=== PATIENT | female | born 1945 | race Caucasian/White ===

== ENCOUNTER → 2021-08-02 11:04 | Outpatient (CLI) | payer MEDICARE, OTHER, SELFPAY ==
--- NOTE | 2021-08-02 | DI.US.S_ITS ---
PROCEDURE: US EXTREMITY NONVASC UPPER LT INDICATIONS: LEFT SHOULDER MASS TECHNIQUE: Real-time scanning was performed of the left shoulder, with image documentation. COMPARISON: None. FINDINGS: No discrete soft tissue mass or fluid collection is noted at patient's reported area of left shoulder mass. No abnormal skin thickening. IMPRESSION: No abnormality is seen in left shoulder soft tissue at patient's reported area of palpable lump. Dictated by: Kevin Mathew M.D. on 08/02/2021 at 16:02 Approved by: Kevin Mathew M.D. on 08/02/2021 at 16:04
== END ==
PROVIDERS: Family Provider Internal Medicine; PCP Internal Medicine; Referring Provider Internal Medicine; Visit Provider Internal Medicine
DX: R22.32 Localized swelling, mass and lump, left upper limb (principal)
CPT/HCPCS: 76882

== ENCOUNTER 2021-09-01 10:20 | Observation (INO) | payer MEDICARE, OTHER, SELFPAY ==
[2021-09-01] VITALS (15 sets, daily range): BP systolic 130–176; BP diastolic 68–94; PULSE 54–68; RESP 16–27; TEMP 36.3–36.6; O2SAT 97–100; BMI 25.6
--- NOTE | 2021-09-01 10:36 | ED.GENADULT ---
HPI - General Adult General Chief complaint: Neuro Symptoms/Deficit Stated complaint: Unable to speak yesterday, trouble seeing Time Seen by Provider: 09/01/21 10:36 History of Present Illness HPI narrative: 76-year-old woman with no significant medical history however minimal interaction with medical system presents with 1 hour of a right-sided visual cut and expressive aphasia starting at 8:00 p.m. last night. Resolved completely by around 9:00 p.m. when she developed a mild headache at the base of her skull. She still has the mild headache that now is radiating down into the shoulder on the right side but no continued neurologic symptoms otherwise. She describes no fevers, cough, chills, dyspnea, chest pain, palpitations, abdominal pain, constipation or diarrhea, lower extremity edema. She notes that she had a similar episode initially in 2011 at that time was seen by a neurologist had an MRI and was diagnosed with migraine. She since has had episodes perhaps as frequently as once a year but never any that have lasted as long as last night. She currently seeing an school library media specialist to help with her chronic headaches and is finding that beneficial. She describes no history of prior strokes, cardiovascular disease, high blood pressure or hyperlipidemia. Related Data Home Medications Medication Instructions Recorded Confirmed No Known Home Medications 09/01/21 09/01/21 Allergies Allergy/AdvReac Type Severity Reaction Status Date / Time No Known Drug Allergies Allergy Verified 09/01/21 10:38 Review of Systems Review of Systems Narrative: Remainder of complete review of systems is otherwise unremarkable except for that included in the HPI. Patient History Social History household members: family Smoking Status: Former smoker alcohol intake: current Exam Narrative Exam Narrative: General: Healthy appearing, in no acute distress. Able to give a complete and coherent history. Well-nourished well-developed HEENT: Moist mucous membranes, normal sclera with reactive pupils, Neck: No JVD, supple Respiratory: Lungs are clear to auscultation, no wheezing no rales no rhonchi. Full and symmetrical air movement Cardiac: Regular rate and rhythm no murmurs no bruits Abdomen: Soft, nontender, good bowel tones, no flank pain Skin: Warm and dry, no rashes Neurologic: Grossly neurologically intact with no obvious asymmetries or abnormalities Extremities: No trauma, well perfused Psych: Cooperative, appropriate insight and affect NIH=0 Initial Vital Signs Initial Vital Signs: Vital Signs Temperature 97.8 F 09/01/21 10:30 Pulse Rate 68 09/01/21 10:30 Respiratory Rate 16 09/01/21 10:30 Blood Pressure 169/83 H 09/01/21 10:30 Pulse Oximetry 97 09/01/21 10:30 Course Orders Ordered: ED Orders 09/01/21 10:35 Complete Blood Count AUTO DIFF Stat Comprehensive Metabolic Panel Stat Lipid Panel Stat Troponin & CK Cardiac Panel Stat 09/01/21 10:54 EKG-12 Lead Stat 09/01/21 11:07 CT angio head and neck Stat CT head/brain wo con Stat 09/01/21 13:47 COVID19 - ADMIT (SOCIAL SCIENCE RESEARCH ASSISTANT swab/PCR) Stat Atorvastatin Calcium (Atorvastatin 20 Mg Tablet) 80 mg PO BEDTIME JANET Clopidogrel Bisulfate (Clopidogrel 75 Mg Tablet) 75 mg PO DAILY JANET Influenza Virus Vaccine (Influenza Hd Vaccine 0.7 Ml Syringe) 0.7 ml IM .ONCE ONE Stop: 09/02/21 09:01 Discontinued Medications Aspirin (Aspirin 81 Mg Chew Tab) 324 mg PO NOW ONE Stop: 09/01/21 10:56 Last Admin: 09/01/21 11:45 Dose: Not Given Documented by: ATAYLOR Sodium Chloride (Normal Saline 0.9%) 1,000 mls @ 150 mls/hr IV CONT JANET Last Admin: 09/01/21 11:30 Dose: 150 mls/hr Documented by: ATAYLOR Vital Signs Vital signs: Vital Signs - 8 hr 09/01/21 10:30 09/01/21 11:30 09/01/21 11:46 Temperature 97.8 F Pulse Rate 68 61 56 L Respiratory Rate 16 23 18 Blood Pressure 169/83 H 157/70 H Pulse Oximetry 97 98 97 09/01/21 12:00 09/01/21 12:01 09/01/21 12:27 Temperature Pulse Rate 55 L 56 L 64 Respiratory Rate 17 18 27 H Blood Pressure 162/68 H 161/68 H Pulse Oximetry 98 98 99 09/01/21 12:30 09/01/21 13:00 09/01/21 13:30 Temperature Pulse Rate 54 L 57 L 61 Respiratory Rate 18 21 22 Blood Pressure 163/69 H 167/76 H Pulse Oximetry 100 99 98 09/01/21 13:31 09/01/21 14:00 09/01/21 14:30 Temperature Pulse Rate 62 61 62 Respiratory Rate 20 23 25 H Blood Pressure 164/76 H 141/75 H 160/80 H Pulse Oximetry 98 98 98 Medical Decision Making Lab Data Result diagrams: 09/01/21 10:35 09/01/21 10:35 Labs: Lab Results 09/01/21 09/01/21 09/01/21 Range/Units 10:35 10:35 10:35 WBC 4.5 (4.5-11.0) X10^3/uL RBC 4.67 (4.0-5.2) X10^6/uL Hgb 13.9 (12.0-16.0) g/dL Hct 41.3 (36-46) % MCV 88.4 (80-100) fL MCH 29.7 (26-34) PG MCHC 33.6 (30-36) % RDW 13.1 (11.6-14.8) % Plt Count 250 (150-400) X10^3/uL Neut % (Auto) 40.1 L (50-75) % Lymph % (Auto) 46.6 H (25-40) % [place] % (Auto) 6.8 (3-14) % Eos % (Auto) 5.3 H (2-4) % Baso % (Auto) 1.2 (0-2) % Neut # (Auto) 1800 (8076-8880) /uL Lymph # (Auto) 2100 (6012-2802) /uL [place] # (Auto) 300 (0-900) /uL Eos # (Auto) 200 (0-450) /uL Baso # (Auto) 100 (0-100) /uL Sodium 139 (137-145) mmol/L Potassium 3.9 (3.4-5.1) mmol/L Chloride 107 (98-107) mmol/L Carbon Dioxide 25 (22-32) mmol/L BUN 14 (7-17) mg/dL Creatinine 0.72 (0.52-1.04) mg/dL Estimated GFR > 60.0 (>60) mL/min BUN/Creatinine Ratio 19.4 (6-22) Glucose 100 (80-110) mg/dL Calcium 9.1 (8.4-10.2) mg/dL Total Bilirubin 0.9 (0.2-1.3) mg/dL AST 32 (14-36) IU/L ALT 25 (<35) IU/L Alkaline Phosphatase 77 (38-126) U/L Total Creatine Kinase 90 (30-135) U/L CK-MB (CK-2) TNP CK-MB (CK-2) Rel Index TNP Troponin I < 0.012 (0.01-0.034) ng/mL Total Protein 7.1 (6.3-8.2) g/dL Albumin 4.5 (3.5-5.0) g/dL Globulin 2.6 (1.7-4.1) g/dL Albumin/Globulin Ratio 1.7 (1.0-2.8) Triglycerides 100 (35-150) mg/dL Cholesterol 215 H (140-199) mg/dL LDL Cholesterol, Calc 125 H (<100) mg/dL HDL Cholesterol 70 H (40-60) mg/dL SARS-CoV-2 (PCR) (Negative) 09/01/21 Range/Units 13:47 WBC (4.5-11.0) X10^3/uL RBC (4.0-5.2) X10^6/uL Hgb (12.0-16.0) g/dL Hct (36-46) % MCV (80-100) fL MCH (26-34) PG MCHC (30-36) % RDW (11.6-14.8) % Plt Count (150-400) X10^3/uL Neut % (Auto) (50-75) % Lymph % (Auto) (25-40) % [place] % (Auto) (3-14) % Eos % (Auto) (2-4) % Baso % (Auto) (0-2) % Neut # (Auto) (1894-2978) /uL Lymph # (Auto) (9893-6768) /uL [place] # (Auto) (0-900) /uL Eos # (Auto) (0-450) /uL Baso # (Auto) (0-100) /uL Sodium (137-145) mmol/L Potassium (3.4-5.1) mmol/L Chloride (98-107) mmol/L Carbon Dioxide (22-32) mmol/L BUN (7-17) mg/dL Creatinine (0.52-1.04) mg/dL Estimated GFR (>60) mL/min BUN/Creatinine Ratio (6-22) Glucose (80-110) mg/dL Calcium (8.4-10.2) mg/dL Total Bilirubin (0.2-1.3) mg/dL AST (14-36) IU/L ALT (<35) IU/L Alkaline Phosphatase (38-126) U/L Total Creatine Kinase (30-135) U/L CK-MB (CK-2) CK-MB (CK-2) Rel Index Troponin I (0.01-0.034) ng/mL Total Protein (6.3-8.2) g/dL Albumin (3.5-5.0) g/dL Globulin (1.7-4.1) g/dL Albumin/Globulin Ratio (1.0-2.8) Triglycerides (35-150) mg/dL Cholesterol (140-199) mg/dL LDL Cholesterol, Calc (<100) mg/dL HDL Cholesterol (40-60) mg/dL SARS-CoV-2 (PCR) Negative (Negative) Urine Dip Bedside Urine Glucose Negative Bedside Urine Bilirubin - Negative Bedside Urine Ketone - Negative Urine Specific [place] 1.010 Bedside Urine Occult Blood - Negative Bedside Urine pH 7.0 Bedside Urine Protein - Negative Bedside Urine Urobilinogen - Negative Bedside Urine Nitrite - Negative Bedside Urine Leukocytes - Negative Esterase Point of care testing: Urine Dip Bedside Urine Glucose Negative Bedside Urine Bilirubin - Negative Bedside Urine Ketone - Negative Urine Specific [place] 1.010 Bedside Urine Occult Blood - Negative Bedside Urine pH 7.0 Bedside Urine Protein - Negative Bedside Urine Urobilinogen - Negative Bedside Urine Nitrite - Negative Bedside Urine Leukocytes - Negative Esterase Imaging Data CT scan - head: Radiologist's Impression: FINDINGS: Image quality: Excellent. CSF spaces: Basal cisterns are patent. Bifrontal CSF prominence, which may reflect atrophy or hygromas. Ventricles are normal in size and shape. Brain: No midline shift. No intracranial masses or hemorrhage. Fraga-white matter interface is normal. Skull and face: Calvarium and visualized facial bones are intact, without suspicious lesions. Sinuses: Visualized sinuses and mastoids are clear. IMPRESSION: No acute intracranial abnormality. Dictated by: Barrera Ghotra M.D. on 09/01/2021 at 11:29 CTA Head and neck: Radiologist's Impression: FINDINGS: Image quality: Excellent. BRAIN: CSF spaces: Ventricles are normal in size and shape. Basal cisterns are patent. No extra-axial fluid collections. Brain: No midline shift. No intracranial bleeds or masses. Fraga-white matter interface appears intact. Skull and face: Calvarium and facial bones appear intact, without suspicious lesions. Orbits appear normal. Sinuses: Sinuses and mastoids are clear. HEAD CT ANGIOGRAPHY: Anterior circulation: Intracranial internal carotid arteries are normal in size and flow. The flow within the paired anterior cerebral arteries is normal and symmetric. The flow within the middle cerebral arteries is normal and symmetric. The anterior communicating artery is not well seen. No aneurysms are seen. Posterior circulation: Note is made of bilateral type origins of the posterior cerebral arteries, with an associated diminutive basilar artery. The flow within the posterior cerebral arteries is normal and symmetric. The distal vertebral arteries are overall small in size, yet otherwise unremarkable. No aneurysms are seen. NECK CT ANGIOGRAPHY: Carotid system: Incidental note is made of a common origin of the right brachiocephalic artery and the left common carotid artery (bovine type arch). This is considered to be a developmental variant of no clinical consequence. The origins of the common carotid arteries appear patent. The common carotid arteries demonstrate normal caliber and courses. The bifurcation regions are both widely patent. The internal carotid arteries demonstrate normal calibers and courses. Posterior circulation: The origins of the vertebral arteries both appear widely patent. The more superior extracranial portions of both vertebral arteries also demonstrate normal courses and calibers. They join to form a normal appearing basilar artery. Soft tissues: Visualized neck soft tissues demonstrate no suspicious abnormalities. Borderline prominent cervical lymph nodes are seen on both sides, without brenda enlargement. Incidental note is made of a left supraclavicular lipoma, which is partially visualized, as on series 8, image 143 that measures least 5 cm. Bones: No suspicious bony lesions. Visualized cervical spine appears normally aligned. Moderate cervical spine degenerative changes are seen. IMPRESSION: No significant intracranial arterial abnormality is seen. Within the arteries of the neck, no hemodynamically significant stenosis can be seen. Cfphjf-yh-Isjswm developmental anomalies are incidentally noted. No masses or abnormal enhancement can be seen. Borderline prominent cervical lymph nodes are seen, without brenda enlargement. Incidental note is made of: Bovine type aortic branching pattern Moderate cervical spine degenerative change Left supraclavicular lipoma Any quantitative measurements of stenosis were performed using NASCET criteria. Dictated by: Rigo Lantigua M.D. on 09/01/2021 at 10:38 ECG Data Interpretation: Sinus rhythm at a rate of 63 Normal intervals, normal axis No acute ischemic changes MDM Narrative Medical decision making narrative: 12:50 76-year-old woman at appropriate body weight active daily life no known blood pressure issues presents with 1 hour long TIA at 8:[address] and CTA are unremarkable. Lipid panel is reassuring with an HDL but still slightly elevated. She declines any aspirin because taking very large doses at 1 point in her life had caused palpitations. She can not conceive of actually taking medications every day. She continues to reiterate that the fact that she had a normal blood pressure reading a couple of years ago when she went in to see a physician means that she could not possibly have hypertension despite the consistent elevated systolic readings throughout her emergency room visit. Recommended hospitalization for further workup of TIA. She is not particularly interested in that. Negotiated additional options of aspirin, blood pressure medication and low-dose statin for risk reduction. Again very reluctant to even consider medications. Negotiated just aspirin and getting a blood pressure cuff and checking as an outpatient. Additional option of simply no treatment and wishful thinking was reviewed as well. After 25 minute discussion of symptoms, life living with a permanent stroke and risk reduction reduction, she and her son are currently considering choices. 130 decides on hospital admission. Care is reviewed with hospitalist. Discharge Plan Departure Patient Disposition: Admitted as Observation Clinical Impression: Transient cerebral ischemia Qualifiers: Transient cerebral ischemia type: other Qualified Code(s): G45.8 - Other transient cerebral ischemic attacks and related syndromes Hypertension Qualifiers: Hypertension type: primary hypertension Qualified Code(s): I10 - Essential (primary) hypertension Admit Date/Time: 09/01/21 14:40 Admit Provider: Masood Hidalgo
[2021-09-01 11:03] LABS: Add Manual Diff / Slide Review NO; Basophils Absolute Auto 100 /uL (0-100); Basophils Percent Auto 1.2 % (0-2); Eosinophils Absolute Auto 200 /uL (0-450); Eosinophils Percent Auto 5.3 % (2-4); Hematocrit 41.3 % (36-46); Hemoglobin 13.9 g/dL (12.0-16.0); Lymphocytes Absolute Auto 2100 /uL (1100-4500); Lymphocytes Percent Auto 46.6 % (25-40); Mean Corpuscular HGB Conc 33.6 % (30-36); Mean Corpuscular Hemoglobin 29.7 PG (26-34); Mean Corpuscular Volume 88.4 fL (80-100); Monocytes Absolute Auto 300 /uL (0-900); Monocytes Percent Auto 6.8 % (3-14); Neutrophils Absolute Auto 1800 /uL (1500-7000); Neutrophils Percent Auto 40.1 % (50-75); Platelet Count 250 X10^3/uL (150-400); Red Blood Cell Count 4.67 X10^6/uL (4.0-5.2); Red Cell Distribution Width 13.1 % (11.6-14.8); White Blood Cell Count 4.5 X10^3/uL (4.5-11.0)
--- NOTE | 2021-09-01 11:07 | DI.CT.S_ITS ---
PROCEDURE: CT ANGIO HEAD AND NECK INDICATIONS: /speech loss at 8pm last night TECHNIQUE: Noncontrast images were performed earlier in the day and not repeated. After the administration of intravenous contrast, 1 mm thick sections acquired from the aortic arch through the [place] of [place]. Post-contrast 4.5 mm thick sections then re-acquired from the foramen magnum to the vertex. 3-dimensional cprknsw-pmcqeqcdj-zlsjyvomao (MIP) and/or volume rendering reformats were acquired of the central intracranial vasculature and neck separately. COMPARISON: [facility], MR, BRAIN WITH AND WITHOUT CONTRAS, 01/07/2010, 11:50. [facility], CT, CT HEAD/BRAIN WO CON, 09/01/2021, 11:08. FINDINGS: Image quality: Excellent. BRAIN: CSF spaces: Ventricles are normal in size and shape. Basal cisterns are patent. No extra-axial fluid collections. Brain: No midline shift. No intracranial bleeds or masses. Fraga-white matter interface appears intact. Skull and face: Calvarium and facial bones appear intact, without suspicious lesions. Orbits appear normal. Sinuses: Sinuses and mastoids are clear. HEAD CT ANGIOGRAPHY: Anterior circulation: Intracranial internal carotid arteries are normal in size and flow. The flow within the paired anterior cerebral arteries is normal and symmetric. The flow within the middle cerebral arteries is normal and symmetric. The anterior communicating artery is not well seen. No aneurysms are seen. Posterior circulation: Note is made of bilateral type origins of the posterior cerebral arteries, with an associated diminutive basilar artery. The flow within the posterior cerebral arteries is normal and symmetric. The distal vertebral arteries are overall small in size, yet otherwise unremarkable. No aneurysms are seen. NECK CT ANGIOGRAPHY: Carotid system: Incidental note is made of a common origin of the right brachiocephalic artery and the left common carotid artery (bovine type arch). This is considered to be a developmental variant of no clinical consequence. The origins of the common carotid arteries appear patent. The common carotid arteries demonstrate normal caliber and courses. The bifurcation regions are both widely patent. The internal carotid arteries demonstrate normal calibers and courses. Posterior circulation: The origins of the vertebral arteries both appear widely patent. The more superior extracranial portions of both vertebral arteries also demonstrate normal courses and calibers. They join to form a normal appearing basilar artery. Soft tissues: Visualized neck soft tissues demonstrate no suspicious abnormalities. Borderline prominent cervical lymph nodes are seen on both sides, without brenda enlargement. Incidental note is made of a left supraclavicular lipoma, which is partially visualized, as on series 8, image 143 that measures least 5 cm. Bones: No suspicious bony lesions. Visualized cervical spine appears normally aligned. Moderate cervical spine degenerative changes are seen. IMPRESSION: No significant intracranial arterial abnormality is seen. Within the arteries of the neck, no hemodynamically significant stenosis can be seen. Fwgzib-ra-Rvvnxe developmental anomalies are incidentally noted. No masses or abnormal enhancement can be seen. Borderline prominent cervical lymph nodes are seen, without brenda enlargement. Incidental note is made of: Bovine type aortic branching pattern Moderate cervical spine degenerative change Left supraclavicular lipoma Any quantitative measurements of stenosis were performed using NASCET criteria. Dictated by: Rigo Lantigua M.D. on 09/01/2021 at 10:38 Approved by: Rigo Lantigua M.D. on 09/01/2021 at 10:42
--- NOTE | 2021-09-01 11:07 | DI.CT.S_ITS ---
PROCEDURE: CT HEAD/BRAIN WO CON INDICATIONS: stroke like symptoms last pm TECHNIQUE: Noncontrast 4.5 mm thick angled axial sections acquired from the foramen magnum to the vertex, with coronal and sagittal reformats. For radiation dose reduction, the following was used: automated exposure control, adjustment of mA and/or kV according to patient size. COMPARISON: Reference is made to the MRI brain dated January 07, 2010. FINDINGS: Image quality: Excellent. CSF spaces: Basal cisterns are patent. Bifrontal CSF prominence, which may reflect atrophy or hygromas. Ventricles are normal in size and shape. Brain: No midline shift. No intracranial masses or hemorrhage. Fraga-white matter interface is normal. Skull and face: Calvarium and visualized facial bones are intact, without suspicious lesions. Sinuses: Visualized sinuses and mastoids are clear. IMPRESSION: No acute intracranial abnormality. Dictated by: Barrera Ghotra M.D. on 09/01/2021 at 11:29 Approved by: Barrera Ghotra M.D. on 09/01/2021 at 11:33
[2021-09-01 11:10] LABS: Alanine Aminotransferase 25 IU/L (<35); Albumin 4.5 g/dL (3.5-5.0); Albumin Globulin Ratio 1.7 (1.0-2.8); Alkaline Phosphatase 77 U/L (38-126); Aspartate Aminotransferase 32 IU/L (14-36); BUN Creatinine Ratio 19.4 (6-22); Bilirubin Total 0.9 mg/dL (0.2-1.3); Blood Urea Nitrogen 14 mg/dL (7-17); Calcium 9.1 mg/dL (8.4-10.2); Carbon Dioxide 25 mmol/L (22-32); Chloride 107 mmol/L (98-107); Cholesterol 215 mg/dL (140-199); Creatine Kinase 90 U/L (30-135); Estimated Glomerular Filt Rate > 60.0 mL/min (>60); Globulin 2.6 g/dL (1.7-4.1); Glucose 100 mg/dL (80-110); HDL Cholesterol 70 mg/dL (40-60); HEMOLYSIS < 15 (0-50); LDL Cholesterol Calculated 125 mg/dL (<100); Potassium 3.9 mmol/L (3.4-5.1); Sodium 139 mmol/L (137-145); Total Protein 7.1 g/dL (6.3-8.2); Triglycerides 100 mg/dL (35-150)
[2021-09-01 11:21] LABS: Troponin I < 0.012 ng/mL (0.01-0.034)
[2021-09-01] MEDS: SODIUM CHLORIDE 0.9% 1,000 ML 150 ML IV (11:30)
--- NOTE | 2021-09-01 14:44 | DI.MRI.S_ITS ---
PROCEDURE: MR STROKE Pre- and post-contrast brain MRI, non-contrast brain MR angiogram, pre- and postcontrast neck MR angiogram INDICATIONS: stroke TECHNIQUE: Brain: Noncontrast axial T1 spin echo, axial T2 fast spin echo, sagittal and axial FLAIR, coronal T2 fast spin echo, axial gradient echo, axial diffusion and ADC through the brain. After the administration of contrast, axial 3D VIBE of the cranial vasculature and brain. Brain MRA: Non-contrast 3-D time of flight MR angiogram, with multiple tkatdup-ulhmoxkdl-ptgbxvvmxw (MIP) reformats performed. Neck MRA: Axial and sagittal TruFISP through the neck. Coronal dynamic MR angiogram during administration of contrast in the arterial and venous phases, with 3-dimenstional krulgrj-zkdhnywhp-dztflzgigo (MIP) reformats constructed from subtraction images. COMPARISON: [facility], CT, CT ANGIO HEAD AND NECK, 09/01/2021, 11:08. [facility], CT, CT HEAD/BRAIN WO CON, 09/01/2021, 11:08. FINDINGS: Image quality: Limited by patient motion artifact. BRAIN: CSF spaces: Ventricles are normal in size and shape. Basal cisterns are patent. No extra-axial fluid collections. Brain: No intracranial bleeds or mass effects. Fraga-white matter interface is normal. Diffusion weighted images show no acute ischemic insults. Brainstem appears normal. Normal intravascular flow voids are present. Dural sinuses demonstrate normal postcontrast enhancement. No abnormal intracranial enhancement. Skull and face: Calvarial marrow signal is normal. Orbits appear normal. Sinuses: Sinuses and mastoids are clear. BRAIN MR ANGIOGRAM: Anterior circulation: Intracranial internal carotid arteries are normal in size and enhancement. The flow within the paired anterior cerebral arteries is normal and symmetric. The flow within the middle cerebral arteries is normal and symmetric. The anterior communicating artery is seen. No stenoses, occlusions, or aneurysms. Posterior circulation: The visualized portions of the vertebral arteries demonstrate normal caliber, and join to form a normal appearing basilar artery. The flow within the posterior cerebral arteries is normal and symmetric. Posterior cerebral arteries have origins bilaterally which is a congenital anatomic variant. No stenoses, occlusions, or aneurysms. NECK MR ANGIOGRAM: Carotids: Great vessels demonstrate bovine variant anatomy as they arise from the aortic arch. The origins of the common carotid arteries appear patent. Proximal common carotid arteries are difficult to evaluate due to motion artifact. Common carotid arteries are grossly patent. The bifurcation regions appear normal bilaterally. The internal carotid arteries demonstrate normal course and caliber. Posterior circulation: The origins of the vertebral arteries are not well visualized due to motion artifact and cannot be evaluated. There is normal flow in the vertebral arteries distal to the origins of the vessels. More superior portions of both vertebral arteries demonstrate normal course and caliber, and join to form a normal appearing basilar artery. Miscellaneous: Subclavian arteries appear patent. Pre-contrast images through the neck show no soft tissue abnormalities. Left supraclavicular fossa lipoma stable compared to prior CT scan. IMPRESSION: BRAIN MRI: 1. No acute intracranial disease process. 2. No areas of acute or chronic infarction. 3. No intracranial hemorrhage. 4. Mild, diffuse cerebral volume loss. 5. Minimal periventricular and subcortical white matter chronic microvascular ischemic change. BRAIN MR ANGIOGRAM: Negative examination. NECK MR ANGIOGRAM: 1. Degraded by patient motion artifact. 2. Internal carotid arteries are fully patent. 3. Well visualized portions of the vertebral arteries are fully patent. Origins of the vertebral arteries are not well visualized due to motion artifact. Dictated by: America Anderson MD, PhD on 09/01/2021 at 15:57 Approved by: America Anderson MD, PhD on 09/01/2021 at 16:07
--- NOTE | 2021-09-01 14:46 | DI.ECHO.S_ITS ---
[place] [facility]---------+ [facility] +---------+ : : [address] : : : : [id number] : : : : Phone: [phone]+ Echocardiogram Report + + :Name: CHANDLER TOM Study Date: 09/01/2021 Height: 62 in : :[facility] ReadingLocation: Weight: 140 lb: : Gender: Female BSA: 1.6 m2 : :: 1945 Age: 76 yrs : :Reason For Study: TIA vs CVA : : Performed By: NAHEED CAMPOS : :Referring: ZAIN ACOSTA : + + Interpretation Summary Normal sinus rhythm. Normal LV size, wall thickness, wall motion and LV systolic function. EF is 60-65%. Normal chamber sizes. No evidence of PFO based on color flow Doppler. No significant valvular abnormalities. No source of embolism found. Compared to prior study 02/09/2010 sinus bradycardia is no longer present. Otherwise no significant changes have occurred. Procedure: A two-dimensional transthoracic echocardiogram with color flow and Doppler was performed. The study quality was technically adequate. Comparison is made with the echocardiogram of 02/09/2010. The patient was in normal sinus rhythm during the exam. Left Ventricle: The left ventricle is normal in size and wall thickness. The left ventricular ejection fraction is normal. Left ventricular wall motion is normal. Diastolic parameters suggest a relaxation abnormality of the left ventricle, consistent with probable normal filling pressures. Right Ventricle: The right ventricle is normal in size and function. Atria: The left atrial size is normal. The right atrium is normal in size. There is no Doppler evidence for an interatrial shunt. The thickening of interatrial septum suggests lipomatous hypertrophy. The atrial septum is aneurysmal. Mitral Valve: There is mild mitral annular calcification. There is mild mitral regurgitation. Aortic Valve: The aortic valve is trileaflet. The aortic valve opens well. No aortic regurgitation is present. Tricuspid Valve: The tricuspid valve is normal. There is trace tricuspid regurgitation. Pulmonary artery pressures cannot be estimated because of the lack of a measurable TR jet velocity but the IVC suggests a CVP of around 3 mmHg. Pulmonic Valve: The pulmonic valve leaflets are thin and pliable; valve motion is normal. There is a trace or physiologic amount of pulmonic regurgitation. Great Vessels: The aortic root is normal size. The ascending aorta is normal in size. The aortic arch is normal in size. The IVC is of normal diameter and collapses greater than 50% with a sniff. This suggests a low right atrial pressure of 3 mm Hg. Pericardium/ Pleura There is no pericardial effusion. There is an anterior echo-free space consistent with a fat pad. There is no pleural effusion. MMode/2D Measurements & Calculations LVIDd: 4.3 cm LVOT diam: 1.7 cm LVIDs: 3.2 cm Ao root diam: 3.0 cm FS: 25.6 % asc Aorta Diam: 3.2 cm IVSd: 0.91 cm Ao Arch Diam (Prox Trans): 2.4 cm LVPWd: 0.95 cm LV latif. diameter/BSA (cm/m^2): 2.6 LV sys. diameter/BSA (cm/m^2): 1.9 LA A2 area: 15.4 cm2 RA long axis: 5.0 cm LA A4 area: 18.9 cm2 RA area: 17.7 cm2 LA length (vol): 5.2 cm RA vol: 53.4 ml LA vol: 47.0 ml RA : 32.5 ml/m2 LA vol index: 28.6 ml/m2 RVD1 (basal): 3.1 cm TAPSE: 2.2 cm Doppler Measurements & Calculations Ao V2 max: 137.2 cm/sec LVOT Max Charlie: 110.4 cm/sec Ao V2 mean: 89.0 cm/sec LV V1 max P.9 mmHg Ao max P.5 mmHg LV V1 VTI: 27.4 cm Ao mean P.5 mmHg MOHAN(I,D): 2.2 cm2 Ao V2 VTI: 28.6 cm MOHAN(V,D): 1.8 cm2 sev ratio: 0.96 MOHAN indexed to BSA (cm^2/m^2): 1.3 MV E max charlie: 80.0 cm/sec PA V2 max: 80.0 cm/sec MV A max charlie: 102.9 cm/sec PA V2 mean: 59.3 cm/sec MV E/A: 0.78 PA mean P.5 mmHg Med Peak E' Charlie: 3.9 cm/sec E/E' med: 20.5 Lat Peak E' Charlie: 8.3 cm/sec E/E' lat: 9.6 E/e' average: 15.1 MV dec time: 0.25 sec [facility] 62.7 ml Electronically signed by: Naya Franz M.D. on Reading Physician:09/01/2021 07:25 PM
[2021-09-01 14:52] LABS: COVID19 - ADMIT (NP swab/PCR) Negative (Negative)
--- NOTE | 2021-09-01 17:23 | SLP.IPNOTE ---
Per Dr. Hidalgo, Brandee does not need speech or swallow screen/evaluation. Order was automatically included but is not necessary.
--- NOTE | 2021-09-01 17:30 | P.HP_ITS ---
History of Present Illness History of Present Illness Date Patient Seen: 09/01/21 Time Patient Seen: 08:00 Chief complaint: Unable to speak yesterday, trouble seeing Narrative: Ms. Nguyễn is a 71W with no significant PMH, takes no medications who presents after having neurologic symptoms last night. She noted that she had 1 hour of right-sided visual cut. She also noted some difficulty with saying the correct word. She had a mild headache with this. She thinks she has a history of migraines, but does not take medications for this. She did not note any lateral izing weakness. She otherwise did not have any symptoms with no fevers, cough, chills, chest pain, shortness of breath, abdominal pain, nausea, vomiting, diarrhea. She saw an outpatient physician today who recommended she come to the ED, her symptoms had already completely resolved. In the ED, workup was done, vitals normal except for hypertension. Labs notable for WBC 4.5, Hgb 13.9, creatinine 0.72. Troponin negative. Cholesterol 215. CT head showed no acute process. CT angio head/neck showed no acute process. Initially she was hesitant to take any medications, but she did agree to plavix and was given a dose. Family history: Mother - hypertension Patient History Family & Social History Social History: household members family Prior Living Arrangements House Safety & Behavioral: Feels Safe in Current Yes Environment Been Physically Hurt or No Threatened By a Person Suicidal Ideation Description None Suicide Plan Description No Plan Tobacco & Substance use: Smoking Status Former smoker alcohol intake current alcohol intake frequency a few times a month Substance Use Type does not use Meds Home Medications and Allergies Home Medications Medication Instructions Recorded Confirmed Type No Known Home Medications 09/01/21 09/01/21 History Allergies Allergy/AdvReac Type Severity Reaction Status Date / Time No Known Drug Allergies Allergy Verified 09/01/21 10:38 Review of Systems Review of Systems Narrative: 14 systems reviewed and negative aside from HPI Exam Vital Signs (past 8 hours): - 09/01/21 10:30 09/01/21 11:30 09/01/21 11:46 Temperature 97.8 F Pulse Rate 68 61 56 L Respiratory Rate 16 23 18 Blood Pressure 169/83 H 157/70 H Pulse Oximetry 97 98 97 09/01/21 12:00 09/01/21 12:01 09/01/21 12:27 Temperature Pulse Rate 55 L 56 L 64 Respiratory Rate 17 18 27 H Blood Pressure 162/68 H 161/68 H Pulse Oximetry 98 98 99 09/01/21 12:30 09/01/21 13:00 09/01/21 13:30 Temperature Pulse Rate 54 L 57 L 61 Respiratory Rate 18 21 22 Blood Pressure 163/69 H 167/76 H Pulse Oximetry 100 99 98 09/01/21 13:31 09/01/21 14:00 09/01/21 14:30 Temperature Pulse Rate 62 61 62 Respiratory Rate 20 23 25 H Blood Pressure 164/76 H 141/75 H 160/80 H Pulse Oximetry 98 98 98 09/01/21 15:35 Temperature 97.3 F L Pulse Rate 65 Respiratory Rate 18 Blood Pressure 176/81 H Pulse Oximetry 99 Oxygen Delivery Method Room Air Narrative Exam Narrative: GEN: no acute distress HEENT: PERRL, moist mucous membranes NECK: trachea midline, no JVD PULM: clear bilaterally, no wheezes, rhonchi, rales ABD: soft, nontender, nondistended, no organomegaly, normal bowel sounds EXT: warm and well perfused with no edema SKIN: no rashes noted NEURO: awake and alert, cranial nerves 2-12 intact, strength 5/5 on upper and lower extremities, sensation intact, rapid alternating movements and heel to sparrow normal, PSYCH: pleasant, cooperative Objective Labs Result Diagrams: 09/01/21 10:35 09/01/21 10:35 Labs: Laboratory Results - last 24 hr 09/01/21 09/01/21 09/01/21 10:35 10:35 10:35 WBC 4.5 RBC 4.67 Hgb 13.9 Hct 41.3 MCV 88.4 MCH 29.7 MCHC 33.6 RDW 13.1 Plt Count 250 Neut % (Auto) 40.1 L Lymph % (Auto) 46.6 H [place] % (Auto) 6.8 Eos % (Auto) 5.3 H Baso % (Auto) 1.2 Neut # (Auto) 1800 Lymph # (Auto) 2100 [place] # (Auto) 300 Eos # (Auto) 200 Baso # (Auto) 100 Sodium 139 Potassium 3.9 Chloride 107 Carbon Dioxide 25 BUN 14 Creatinine 0.72 Estimated GFR > 60.0 BUN/Creatinine Ratio 19.4 Glucose 100 Calcium 9.1 Total Bilirubin 0.9 AST 32 ALT 25 Alkaline Phosphatase 77 Total Creatine Kinase 90 CK-MB (CK-2) TNP CK-MB (CK-2) Rel Index TNP Troponin I < 0.012 Total Protein 7.1 Albumin 4.5 Globulin 2.6 Albumin/Globulin Ratio 1.7 Triglycerides 100 Cholesterol 215 H LDL Cholesterol, Calc 125 H HDL Cholesterol 70 H SARS-CoV-2 (PCR) 09/01/21 13:47 WBC RBC Hgb Hct MCV MCH MCHC RDW Plt Count Neut % (Auto) Lymph % (Auto) [place] % (Auto) Eos % (Auto) Baso % (Auto) Neut # (Auto) Lymph # (Auto) [place] # (Auto) Eos # (Auto) Baso # (Auto) Sodium Potassium Chloride Carbon Dioxide BUN Creatinine Estimated GFR BUN/Creatinine Ratio Glucose Calcium Total Bilirubin AST ALT Alkaline Phosphatase Total Creatine Kinase CK-MB (CK-2) CK-MB (CK-2) Rel Index Troponin I Total Protein Albumin Globulin Albumin/Globulin Ratio Triglycerides Cholesterol LDL Cholesterol, Calc HDL Cholesterol SARS-CoV-2 (PCR) Negative Assessment & Plan Assessment & Plan narrative: Ms. Nguyễn is a 76W with no significant PMH who presents with visual changes and aphasia, now completely resolved admitted for TIA workup 1. TIA vs migraine -CT head, CT angio head/neck with no acute process -MRI and ECHO ordered -ordered for plavix and atorvastatin -PT/OT ordered, speech not indicated currently -NIH score qshift -lipids elevated -a1c pending 2. Hypertension -allow permissive hypertension -consider adding anti-hypertensive prior to dc 3. Hyperlipidemia -ordered for atorvastatin CODE: Full Proxy: Wild Nguyễn, son DVT ppx: Lovenox ut Dispo: Observation, excpet overnight admission for TIA workup and discharge tomorrow I have utilized all available immediate resources to obtain, update, or review the patient's current medications. Time Spent With Patient Critical Care time: I spent a total of [] minutes of critical care time on this patient's care today; this time is exclusive of procedural time. Quality VTE Deep Vein Thrombosis/Pulmonary Embolism Present on Admission: No MIPS - Admit I confirm the patient?s Advance Care Plan is present, Code status is documented, Surrogate decision maker is in patient?s record [If Yes, STOP here]: Yes
[2021-09-02 06:22] LABS: Add Manual Diff / Slide Review NO; Basophils Absolute Auto 0 /uL (0-100); Basophils Percent Auto 0.7 % (0-2); Eosinophils Absolute Auto 300 /uL (0-450); Eosinophils Percent Auto 6.3 % (2-4); Hematocrit 40.5 % (36-46); Hemoglobin 13.4 g/dL (12.0-16.0); Lymphocytes Absolute Auto 1700 /uL (1100-4500); Lymphocytes Percent Auto 41.2 % (25-40); Mean Corpuscular Hemoglobin 29.2 PG (26-34); Mean Corpuscular Volume 88.4 fL (80-100); Monocytes Absolute Auto 400 /uL (0-900); Monocytes Percent Auto 8.5 % (3-14); Neutrophils Absolute Auto 1800 /uL (1500-7000); Neutrophils Percent Auto 43.3 % (50-75); Platelet Count 222 X10^3/uL (150-400); Red Blood Cell Count 4.58 X10^6/uL (4.0-5.2); Red Cell Distribution Width 13.3 % (11.6-14.8); White Blood Cell Count 4.2 X10^3/uL (4.5-11.0)
[2021-09-02 06:39] LABS: BUN Creatinine Ratio 15.5 (6-22); Blood Urea Nitrogen 11 mg/dL (7-17); Calcium 8.8 mg/dL (8.4-10.2); Carbon Dioxide 28 mmol/L (22-32); Chloride 108 mmol/L (98-107); Estimated Glomerular Filt Rate > 60.0 mL/min (>60); Glucose 90 mg/dL (80-110); HEMOLYSIS < 15 (0-50); Potassium 3.8 mmol/L (3.4-5.1); Sodium 140 mmol/L (137-145)
[2021-09-02 06:42] LABS: Hemoglobin A1C% w Est Avg Glu 5.2 % (4.0-6.0)
[2021-09-02 06:48] LABS: Cholesterol 187 mg/dL (140-199); HDL Cholesterol 61 mg/dL (40-60); LDL Cholesterol Calculated 102 mg/dL (<100); Triglycerides 118 mg/dL (35-150)
[2021-09-02 07:45] VITALS: BP 115/75; PULSE 69; RESP 18; TEMP 36.5; O2SAT 98
--- NOTE | 2021-09-02 08:12 | PC.NURSE ---
Addendum entered by Fransisca Koroma R.N. 09/02/21 10:13: Patient given discharge instructions regarding f/u appointment with PCP, new medications, s/s of stroke or worsening condition, patient verbalized understanding. Patient's IV removed, patient tolerated, denies further needs or questions at this time. Denies having belongings in the safe or pharmacy. Patient discharged via wheelchair with aide assist. Addendum entered by Fransisca Koroma R.N. 09/02/21 09:14: Patient requests to hold on plavix and instead trial Aspirin 81mg, gave verbal order for medication change. Patient currently working with OT. Denies further needs at this time. Original Note: Patient resting in bed, denies changes in vision or difficulty with speech. NIH 0. A/O x 3. VSS. Denies pain, SOB, dizziness or headache. Tele on. Call light in reach. Patient denies further needs at this time.
[2021-09-02] MEDS: INFLUENZA HD VACCINE 0.7 ML SYRINGE IM (08:19)
[2021-09-02] MEDS: ASPIRIN EC 81 MG TABLET PO (09:08)
--- NOTE | 2021-09-02 09:23 | OT.IP.EVAL ---
Occupational Therapy Inpatient Evaluation/Re-Eval M1 PT/OT-IP Prior Functional Status Start: 09/02/21 09:21 Freq: NEEDED Status: Active Protocol: Document 09/02/21: [facility] (Rec: 09/02/21 09:42 [facility] [id number]) Medical Review Prior Functional Status Communication Independent Mobility and Gait Pt completely independent for ambulation needs without a device. 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 Social History Household Members family Living Arrangements House Number of Stairs To Enter/Railing? 1 step to get into the doorway . 10-15 steps with narrow echeverria to hold to if needed to get upstairs and also for downstairs levels. Home Environment High Toilet,Tub/Shower Home Equipment Hand Held Shower Additional Social History Comment Pt's son lives with pt at this time and states has been doing her bills. M2 OT-IP Current Condition Start: 09/02/21 09:21 Freq: Status: Active Protocol: Document 09/02/21:21 [facility] (Rec: 09/02/21 09:42 [facility] [id number]) Occupational Therapy Current Condition Current Condition Evaluation Date 09/02/21 Treatment Diagnosis TIA Diagnosis Onset Date 09/01/21 M3 OT- IP Subjective and Pain Start: 09/02/21 09:21 Freq: Status: Active Protocol: Document 09/02/21 09:21 [facility] (Rec: 09/02/21 09:42 [facility] [id number]) OT- Subjective Occupational Therapy Visit Type Type Initial Evaluation Visit Start Time 08:38 Visit Stop Time 09:23 Total Visit Minutes 45 Occupational Therapy Visit Comments Patient Comments Pt agreed to go OT eval and pt 's son present in the room. Patient/Caregiver Goals To go home. OT Pain Assessment Pain When Pain Assessed At Rest Pain Present Pain Present Denied Pain M4 OT- IP ADL's Start: 09/02/21 09:21 Freq: Status: Active Protocol: Document 09/02/21:21 [facility] (Rec: 09/02/21 09:42 [facility] [id number]) OT [id number] General Evaluation Self-Feeding Ability Independent OT ADL-Grooming Comments OT Grooming Comments Not performed. OT ADL-Oral Care Comments Oral Care Comments Not performed. OT ADL-Dressing Comments OT Dressing Comments Pt not wanting to get dressed yet at this time. OT ADL-Toileting General Evaluation Toileting Ability Independent OT ADL-Bathing Comments OT Bathing Comments Not performed. M5 OT- IP IADL's Start: 09/02/21 09: Freq: Status: Active Protocol: Document 09/02/21 09:21 [facility] (Rec: 09/02/21 09:42 [facility] [id number]) OT-Instrumental Activities of Daily Living Home Safety Awareness Home Safety Comments pt feels that she is at baseline level for cognitive needs, however pt's son aware to provide supervision and assist as needed. Medication Management Medication Management Comments Suggested pt's son to supervise her as needed. Money Management Money Management Comments Pt's son already has been paying the bills. Meal Preparation Meal Preparation Comments Son to provide supervision as needed. Mechanical Assembler Mechanical Assembler Comments Son to provide supervision as needed. Driving Driving Comments Suggested son to drive initially or sit with his mom if trying to drive. M6 OT- IP Functional Cognition Start: 09/02/21 09:21 Freq: Status: Active Protocol: Document 09/02/21: [facility] (Rec: 09/02/21 09:42 [facility] [id number]) Cognitive Factors Limiting Selfcare Function Cognitive Ability Level of Alertness Alert Patient Orientation Name,Age,Birthday,Month,Date, Year,Day of Week,Place, Situation Attention Span Ability Capable of Focused Attention, Capable of Sustained Attention Ability to Follow Commands Able to Follow One Step Commands Memory Description Short Term Impaired Safety Awareness Underestimates Need for Assistance Problem Solving Ability No deficits Noted Executive Function Ability Unable to Remember Details Cognitive Comments Cognitive Assessment Comments Pt needing reminders for directions for 9 Hole Peg test , assist to help average two numbers, and for looking up information for a 4 variable chart. Pt scored 97seconds on [place] Making Part B which implies mild impairments for visual attention, task switching, speed of processing , mental flexibility, executive functioning, and speed of processing. Pt's son aware to provide supervision for needs as needed. OT- Vision and Hearing OT- Hearing Assessment OT- Hearing Assessment WFL OT- Vision Assessment Visual Acuity Glasses All The Time Visual Attentiveness WFL Occular Pursuits WFL Visual Convergence WFL Visual [place] WFL M7 OT- IP Mobility and Balance Start: 09/02/21 09:21 Freq: Status: Active Protocol: Document 09/02/21 09:21 [facility] (Rec: 09/02/21 09:42 [facility] [id number]) OT- Bed Mobility Assessment Rolling Type of Rolling Roll to Left Level of Assistance Independent Supine to Sit Supine to Sit Assist Independent Sit to Supine Sit to Supine Assist Independent Scooting Scooting to Edge of Bed Independent Scooting Up and Down in Bed Independent OT-Transfer Assessment Sit to and From Stand Sit to and from Stand Independent Transfers Transfer Ability Independent Technique Transfer Destination Bed Comments Mobility Comments Pt independent to move in her room. OT- Gait Assessment Comments Gait Ability Comments Independent without a device for level surfaces. OT- Balance Assessment Sitting Balance and Reactions Static Sitting Balance Ability Normal Dynamic Sitting Balance Ability Normal Standing Balance and Reactions Static Standing Balance Ability Normal M8 OT- IP Objective Assessments Start: 09/02/21 09:21 Freq: Status: Active Protocol: Document 09/02/21 09:21 [facility] (Rec: 09/02/21 09:42 [facility] [id number]) OT Gross Range of Motion Upper Extremity Range of Motion Assessment Within Functional Limits OT Strength Upper Extremity Strength Assessment Within Functional Limits Comments Strength Comments WFL OT- Coordination Assessment Upper Extremity Finger to Nose Test Within Functional Limits Comments Coordination Comments Right hand 21 sec and left hand 23 second and both are approx. 75% for her age group. OT-Muscle Tone Assessment Muscle Tone WNL Yes OT Sensation Assessment Comments Summary Comments WFL for light touch M9 OT- IP Assessment and Plan Start: 09/02/21 09:21 Freq: Status: Active Protocol: Document 09/02/21 09:21 [facility] (Rec: 09/02/21 09:42 [facility] [id number]) OT Summary Assessment and Plan Potential Rehabilitation Potential Excellent Analytic Complexity at Evaluation Low Summary Progress Towards Goals Safe For Discharge Assessment Summary Pt low complexity and here due to TIA. Pt has a very supportive son who lives with the pt and prior has started to do her bills and is aware to provide supervision especially for executive problem solving needs. Pt to go home with her son when medically stable. Goals Shower Transfer Goal Independent Days to Meet Goals 1 Frequency of Treatment Frequency Of Treatment Once a Day Treatment Plan OT Treatment Plan ADL Training,Functional Cognition Training,Functional Mobility,Patient/Family Education,Discharge Planning Other Treatment Recommendations and Next shower if pt stil here Treatment Focus Discharge Recommendations OT Discharge Recommendations Home with Assistance Home Equipment Needs ?shower chair Transportation Needs at Discharge Private Vehicle
--- NOTE | 2021-09-02 11:26 | P.DS_ITS ---
History of Present Illness History of Present Illness Chief complaint: Unable to speak yesterday, trouble seeing Narrative: Ms. Nguyễn is a 71W with no significant PMH, takes no medications who presents after having neurologic symptoms last night. She noted that she had 1 hour of right-sided visual cut. She also noted some difficulty with saying the correct word. She had a mild headache with this. She thinks she has a history of migraines, but does not take medications for this. She did not note any laterali zing weakness. She otherwise did not have any symptoms with no fevers, cough, chills, chest pain, shortness of breath, abdominal pain, nausea, vomiting, diarrhea. She saw an outpatient physician today who recommended she come to the ED, her symptoms had already completely resolved. In the ED, workup was done, vitals normal except for hypertension. Labs notable for WBC 4.5, Hgb 13.9, creatinine 0.72. Troponin negative. Cholesterol 215. CT head showed no acute process. CT angio head/neck showed no acute process. Initially she was hesitant to take any medications, but she did agree to plavix and was given a dose. Family history: Mother - hypertension Discharge Providers Provider Date of admission: 09/01/21 14:40 Discharge Date: 09/02/21 Primary care physician: Judy Hameed MD Consults: 09/01/21 14:44 Consult to Discharge Planning Routine Comment: Consult to Occupational Therapy Evaluate & Treat Comment: Physician Instructions: Evaluate and treat Consult to Physical Therapy Evaluate & Treat Comment: Physician Instructions: Evaluate and Treat Consult to Speech Therapy Evaluate & Treat Comment: Physician Instructions: Evaluate and treat Discharge provider: Masood Hidalgo MD Summary Hospital Course Discharge Diagnosis: 1. TIA 2. Hyperlipidemia Hospital Course: Ms. Nguyễn came in to the hospital with difficulty with vision and speech that resolved before admission. She had workup done that showed no evidence of stroke on CT head or MRI head. CT angio/head neck did not show any large acute process. ECHO showed preserved EF. She was ordered for aspirin and statin. She had high cholesterol. She initially had high blood pressure but this resolved without treatment, so she was not started on anti-hypertensives. Exam Vital Signs (past 8 hours): Oxygen Delivery Method Room Air Oxygen Flow Rate 0 Narrative Exam Narrative: GEN: no acute distress HEENT: PERRL, moist mucous membranes NECK: trachea midline, no JVD PULM: clear bilaterally, no wheezes, rhonchi, rales ABD: soft, nontender, nondistended, no organomegaly, normal bowel sounds EXT: warm and well perfused with no edema SKIN: no rashes noted NEURO: awake and alert, cranial nerves 2-12 intact, strength 5/5 on upper and lower extremities, sensation intact, rapid alternating movements and heel to sparrow normal, PSYCH: pleasant, cooperative Objective Labs Result Diagrams: 09/02/21 05:51 09/02/21 05:51 Labs: Laboratory Results - last 24 hr 09/02/21 09/02/21 09/02/21 05:51 05:51 05:51 WBC 4.2 L RBC 4.58 Hgb 13.4 Hct 40.5 MCV 88.4 MCH 29.2 MCHC 33.0 RDW 13.3 Plt Count 222 Neut % (Auto) 43.3 L Lymph % (Auto) 41.2 H [place] % (Auto) 8.5 Eos % (Auto) 6.3 H Baso % (Auto) 0.7 Neut # (Auto) 1800 Lymph # (Auto) 1700 [place] # (Auto) 400 Eos # (Auto) 300 Baso # (Auto) 0 Sodium 140 Potassium 3.8 Chloride 108 H Carbon Dioxide 28 BUN 11 Creatinine 0.71 Estimated GFR > 60.0 BUN/Creatinine Ratio 15.5 Glucose 90 Hemoglobin A1c 5.2 Calcium 8.8 Triglycerides Cholesterol LDL Cholesterol, Calc HDL Cholesterol 09/02/21 05:51 WBC RBC Hgb Hct MCV MCH MCHC RDW Plt Count Neut % (Auto) Lymph % (Auto) [place] % (Auto) Eos % (Auto) Baso % (Auto) Neut # (Auto) Lymph # (Auto) [place] # (Auto) Eos # (Auto) Baso # (Auto) Sodium Potassium Chloride Carbon Dioxide BUN Creatinine Estimated GFR BUN/Creatinine Ratio Glucose Hemoglobin A1c Calcium Triglycerides 118 Cholesterol 187 LDL Cholesterol, Calc 102 H HDL Cholesterol 61 H [facility] Social History household members: family Smoking Status: Former smoker alcohol intake: current Discharge Plan Discharge Plan Patient Disposition: Home Provider Discharge Comment: Ms. Nguyễn came to the hospital with some vision changes and speech changes. These improved before coming to the hospital. She probably had a TIA. She had an MRI that showed no stroke. Her ECHO of her heart showed good heart function. She had a few high blood pressure readings, but those were much better on day of discharge. She should follow up closely with her PCP to make sure her blood pressure remains under good control. Discharge orders & Medications Prescriptions: New aspirin 81 mg Tablet,Delayed Release (Dr/Ec) 81 mg PO DAILY Qty: 30 RF: 0 atorvastatin 80 mg tablet 80 mg PO BEDTIME Qty: 30 RF: 0 Follow up/Referrals: Judy Hameed MD [Primary Care Provider] - Diet/Activity/Treatments Diet: Regular Discharge Data Primary Care Provider: Judy Hameed Attending Provider: Masood Hidalgo VTE Deep Vein Thrombosis/Pulmonary Embolism Present on Admission: No
--- NOTE | 2021-09-02 13:22 | PT-IP ANOTE ---
PT chidi received and checked on pt. Pt was about to d/c home and nurse in room. pt stated that she does not think she needs PT and she feels like she is back to her normal self. spouse also in room and stated that he will assist her at home if needed. Pt requested no PT and no has no concerns with regarding to mobility and PT needs.
== END 2021-09-02 10:05 | disposition home or self-care (01) ==
LOC: ED 13:33 → AC 14:41
PROVIDERS: Admitting Provider Internal Medicine; Emergency Provider Emergency Medicine; Family Provider Internal Medicine; PCP Internal Medicine; Referring Provider Emergency Medicine; Visit Provider Internal Medicine
DX: G45.9 Transient cerebral ischemic attack, unspecified (principal); E78.5 Hyperlipidemia, unspecified; Z87.891 Personal history of nicotine dependence; Z20.822 Contact with and (suspected) exposure to COVID-19; Z23 Encounter for immunization
CPT/HCPCS: 36415; 70450; 70496; 70498; 70548; 70553; 80048; 80053; 80061; 81003; 82550; 83036; 84484; 85025; 87635; 90471; 90662; 93005; 93306; 96360; 96361; 97165; 97530; 99285; C9803; G0378; A9579; Q9967

== ENCOUNTER → 2021-11-16 10:27 | Outpatient (CLI) | payer MEDICARE, OTHER, SELFPAY ==
[2021-09-01 15:29] VITALS: BMI 25.6
--- NOTE | 2021-11-16 | DI.US.S_ITS ---
PROCEDURE: US CAROTID DOPPLER BI INDICATIONS: TRANSIENT ISCHEMIC ATTACK TECHNIQUE: Color and pulse Doppler interrogation was performed of both carotid systems, with image documentation and velocity measurements. COMPARISON: [facility], CT, CT ANGIO HEAD AND NECK, 09/01/2021, 11:08. [facility], US, CAROTID ARTERY DOPPLER BILAT, 02/09/2010, 9:14. FINDINGS: Stenosis calculations are based on SRU (Society of Radi[employer] in Ultrasound) criteria. Right side: Brachial blood pressure: 119/77 mm Hg. Common carotid artery peak systolic velocity: 97 cm/sec. Internal carotid artery peak systolic velocity: 115 cm/sec. Internal carotid artery end diastolic velocity: 45 cm/sec. External carotid artery peak systolic velocity: 106 cm/sec. ICA/CCA peak systolic ratio: 1.2 . Fraga scale imaging description: No plaque Percent internal carotid artery stenosis: Fully patent . Vertebral artery: Flow direction is antegrade. Left side: Brachial blood pressure: 127/78 mm Hg. Common carotid artery peak systolic velocity: 113 cm/sec. Internal carotid artery peak systolic velocity: 114 cm/sec. Internal carotid artery end diastolic velocity: 40 cm/sec. External carotid artery peak systolic velocity: 94 cm/sec. ICA/CCA peak systolic ratio: 1.0 . Fraga scale imaging description: No plaque Percent internal carotid artery stenosis: Fully patent . Vertebral artery: Flow direction is antegrade. IMPRESSION: Right and left internal carotid arteries are fully patent. Dictated by: America Anderson MD, PhD on 11/16/2021 at 14:26 Approved by: America Anderson MD, PhD on 11/16/2021 at 14:28
== END ==
PROVIDERS: Family Provider Internal Medicine; PCP Internal Medicine; Referring Provider Internal Medicine; Visit Provider Internal Medicine
DX: G45.9 Transient cerebral ischemic attack, unspecified (principal)
CPT/HCPCS: 93880

== ENCOUNTER → 2024-01-17 16:29 | Outpatient (CLI) | payer MEDICARE, OTHER, SELFPAY ==
[2021-09-01 15:29] VITALS: BMI 25.6
--- NOTE | 2024-01-17 | DI.RAD.S_ITS ---
PROCEDURE: XR RIBS RT MIN 3V W CXR 1V INDICATIONS: PAIN RT SIDE, fell off bed right posterior rib pain TECHNIQUE: 2 views of the ribs were acquired, along with a single view chest. COMPARISON: None. FINDINGS: Surgical changes and devices: None. Bones and chest wall: No displaced fractures are apparent on radiography. degenerative changes of the shoulder joints. Age-indeterminate wedging of some vertebral bodies is seen. There may be old fracture deformities in the right upper anterior right ribs. Lungs and pleura: No dense consolidation or pleural effusion. Mediastinum: Heart size is normal IMPRESSION: No acute radiographic abnormality. If there is high concern for occult injury, consider repeat radiography or cross-sectional imaging. Possible old fracture deformities in right anterior upper ribs. Dictated by: Maxi Lan M.D. on 01/18/2024 at 11:10 Approved by: Maxi Lan M.D. on 01/18/2024 at 11:12
== END ==
PROVIDERS: Family Provider Internal Medicine; PCP Internal Medicine; Referring Provider Internal Medicine; Visit Provider Internal Medicine
DX: R07.81 Pleurodynia (principal)
CPT/HCPCS: 71101

== ENCOUNTER → 2024-03-28 18:50 | Outpatient (CLI) | payer MEDICARE, OTHER, SELFPAY ==
[2021-09-01 15:29] VITALS: BMI 25.6
--- NOTE | 2024-03-28 18:53 | DI.MRI.S_ITS ---
PROCEDURE: MR HEAD/BRAIN WO CON INDICATIONS: DIZZINESS/HEADACHE/WEAKNESS TECHNIQUE: Non-contrast axial T1 spin echo, axial T2 fast spin echo, sagittal and axial FLAIR, coronal T2 fast spin echo, axial gradient echo, axial diffusion and ADC through the brain. COMPARISON: [facility], MR, MR STROKE, 09/01/2021, 14:57. FINDINGS: Image quality: Excellent. CSF spaces: Ventricles appear symmetric in size and shape. Basal cisterns are patent. No extra-axial fluid collections. Brain: Foci of abnormal diffusion-weighted signal can be seen involving the cerebellar hemispheres, left worse than right. Associated dark signal can be seen on the ADC maps. There is developing T2 weighted signal seen within these regions. No intracranial bleeds or mass effects. There is cerebral volume loss for age. There are periventricular and deep white matter chronic small vessel ischemic changes. Brainstem appears normal. Stable cystic lesions can be seen involving the basal ganglia, left larger than right, as on series 8, image 12, which are stable compared to 2020. Normal intravascular flow voids are present. Skull and face: Calvarial bone marrow is normal in signal. Orbits are normal. Sinuses: Sinuses and mastoids are clear. 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 on 03/31/2024 at 10:01 Approved by: Rigo Lantigua M.D. on 03/31/2024 at 10:04
== END ==
PROVIDERS: Family Provider Internal Medicine; PCP Internal Medicine; Referring Provider Internal Medicine; Visit Provider Internal Medicine
DX: R42 Dizziness and giddiness (principal); R51.9 Headache, unspecified; L82.0 Inflamed seborrheic keratosis; R53.1 Weakness; R90.89 Other abnormal findings on diagnostic imaging of central nervous system
CPT/HCPCS: 70551

== ENCOUNTER → 2024-08-26 12:04 | Outpatient (CLI) | payer MEDICARE, OTHER, SELFPAY ==
[2021-09-01 15:29] VITALS: BMI 25.6
--- NOTE | 2024-08-26 12:12 | DI.RAD.S_ITS ---
PROCEDURE: XR ELBOW RT 2V INDICATIONS: PAIN TECHNIQUE: 3 views of the elbow were acquired. COMPARISON: None. FINDINGS: Bones: There are no osseous abnormalities. Elbow joint: Normal in width and alignment without arthritic change. There are no effusions. Soft tissues: No soft tissue swelling, calcification or mass. IMPRESSION: Normal elbow Dictated by: Orestes Monique M.D. on 08/27/2024 at 10:36 Approved by: Orestes Monique M.D. on 08/27/2024 at 10:36
--- NOTE | 2024-08-26 12:12 | DI.RAD.S_ITS ---
PROCEDURE: XR FOREARM RT 2V INDICATIONS: PAIN TECHNIQUE: 2 views of the forearm were acquired. COMPARISON: None. FINDINGS: Bones: There are no osseous abnormalities Joints: Moderate STT and 1st CMC degeneration noted. Elbow and remaining wrist joints appear normal. Soft tissues: No soft tissue abnormality. IMPRESSION: Degeneration. Dictated by: Orestes Monique M.D. on 08/27/2024 at 10:58 Approved by: Orestes Monique M.D. on 08/27/2024 at 10:59
== END ==
PROVIDERS: Family Provider Internal Medicine
DX: M18.11 Unilateral primary osteoarthritis of first carpometacarpal joint, right hand (principal); M19.031 Primary osteoarthritis, right wrist; M25.521 Pain in right elbow; M79.631 Pain in right forearm
CPT/HCPCS: 73070; 73090